=== PATIENT | female | born 1955 | race Caucasian/White ===

== ENCOUNTER → 2018-06-27 13:52 | Outpatient (CLI) | payer MEDICARE, OTHER, SELFPAY ==
--- NOTE | 2018-06-27 | DI.MRI.S_ITS ---
PROCEDURE: MR ORBITS FACE NECK WO/W CON INDICATIONS: PAROTID SALIVARY GLAND NEOPLASM TECHNIQUE: Sagittal/axial/coronal T1 spin echo and STIR. After the administration of contrast, axial/coronal/sagittal T1 fast spin echo with fat saturation through the neck. COMPARISON: None. FINDINGS: Image quality: Excellent. Lymph nodes: Borderline prominent right level IIA lymph nodes can be seen. Vessels: Visualized vasculature appears normal, with matheus flow voids and enhancement. Neck spaces: The oropharynx, nasopharynx and pharynx are unremarkable, without mucosal lesions seen. Vocal cords, false vocal cords, pyriform sinuses, epiglottis, vallecula, and tongue base all appear normal. Extramucosal spaces of the neck also appear unremarkable. Glands: At the area of clinical concern, there is a focal lesion with increased T2-weighted signal and decreased T1 weighted signal that is along the expected course of the right parotid duct. In greatest axial dimension, this measures 13 x 6 mm. There is mild increased enhancement seen. The parotid glands themselves demonstrate an unremarkable appearance, without masses or abnormal enhancement. The parotid glands appear relatively symmetric. The submandibular glands appear normal. Thyroid gland demonstrates no significant MRI abnormality. Miscellaneous: Visualized brain and orbits appear normal. Lung apices appear clear. Superficial soft tissues appear normal. Visualized sinuses and mastoids appear clear. Bones: Marrow has normal overall signal. IMPRESSION: 13 x 6 mm lesion seen along the expected course of the right parotid duct, which may be related to the parotid duct itself. As clinically appropriate, please consider a dedicated neck CT with and without contrast, to evaluate for a potential stone and for parotid duct pathology. Borderline prominent right level IIA lymph nodes are seen. Dictated by: Reilly Rashid M.D. on 06/27/2018 at 15:44 Approved by: Reilly Rashid M.D. on 06/27/2018 at 15:48
[2018-06-27 14:49] LABS: Estimated Glomerular Filt Rate > 60.0 mL/min (>60)
[2018-07-02 04:21] LABS: Theophylline < 2.5 mg/L (10.0-20.0)
== END ==
PROVIDERS: PCP Internal Medicine; Visit Provider Otolaryngology
DX: D37.030 Neoplasm of uncertain behavior of the parotid salivary glands (principal)
CPT/HCPCS: 36415; 70543; 80198; 82565; A9579